=== PATIENT | female | born 1970 ===

== ENCOUNTER 2020-09-12 10:26 | Outpatient (REF) | payer BC, SELFPAY ==
--- NOTE | 2020-09-12 12:54 | MHC.AU.ANO ---
Adult Audiological Evaluation Date of Visit: 09/12/20 [employer] Used: Not Applicable Reason for Appointment: Audiologic evaluation due to question of hearing ability. Lia reports her family thinks she is not responding to speech consistently. Does patient feel they have a hearing loss?: Unsure Has hearing been tested previously?: Yes Previous Hearing Test Results: Automated screening performed at PCP office with Left Ear failing the screen. Hearing Handicap Inventory: HHIE SCORE: 6 Based on HHIE score, patient has: No perceived hearing handicap Ear History: History of Ear Wax Buildup: Left Ear Ear used on the phone: Left Ear History of occupational noise exposure?: No History: History: No Medical History: Medical History: High Blood Pressure, Heart Palpitations Medication List: Zoloft and Atenolol Otoscopy: Right Ear: Unremarkable Left Ear: Unremarkable Tympanometry: Tympanometry performed due to: To assess integrity of the middle ear system Right Ear: Normal Middle Ear System (Type A) Left Ear: Normal Middle Ear System (Type A) Otoacoustic Emissions Frequency Range Used: 1.6-8 kHz Right Ear Results: Analysis: Present emissions suggest normal cochlear function Rules out peripheral hearing loss greater than a mild degree Left Ear Results: Present 5111-3865 Hz, Absent 8000 Hz Analysis: Present emissions suggest normal cochlear function Rules out peripheral hearing loss greater than a mild degree Reduced/Absent emissions suggest cochlear dysfunction Hearing Evaluation: Transducer(s) Used: Insert Earphones Method: Conventional Audiometry Stimuli Used: Pure Tones Right Ear: Description of Hearing: Normal hearing thresholds 250-8000 Hz Left Ear: Description of Hearing: Normal hearing thresholds 250-8000 Hz Speech Recognition Threshold (SRT): Method Used: Monitored Live Voice Stimuli Used: Spondee Words Right Ear: 5 dB HL Left Ear: 10 dB HL Word Discrimination: Method: Recorded Lists Word Lists Used: NU-6 Right Ear: 100% at 50 dB HL Left Ear: 100% at 55 dB HL QuickSIN: Binaural Quick SIN Test: 0 dB SNR Loss suggesting Lia does not experience any more difficulty than expected understanding speech with increasing levels of background noise in this controlled test environment. Recommendations: - Discussed the role of attention and speech understanding. Even in light of the normal hearing thresholds and middle/inner ear function, if the speaker does not have Lia's attention, is at a distance/speaking from a different room, or background noise is present, Lia may not process the entire verbal message. Discussed and provided a handout out to share with her family regarding Communication Strategies to improve speech understanding as much as possible. - No further audiological action is indicated at this time. If a change in hearing is suspected, advise audiologic re-evaluation. Diagnosis: Primary Diagnosis: H93.293 (Concern of) Abnormal Auditory Perception Services Performed: Comprehensive Audiological Evaluation (CPT 99261) Diagnostic Otoacoustic Emissions (CPT 64353, 26+TC) Tympanometry (CPT 34560) Signature: Provider: Yemi Brown, CCC-A
== END 2020-09-12 10:27 | disposition home or self-care (01) ==
LOC: HO.SH 10:26
PROVIDERS: Visit Provider Family Medicine
DX: H93.293 Other abnormal auditory perceptions, bilateral (principal)
CPT/HCPCS: 92557; 92567; 92588